=== PATIENT | male | born 1950 | race Caucasian/White ===

== ENCOUNTER 2017-06-05 13:37 | Emergency (ER) | payer OTHER ==
[~2017-06-05] VITALS: Ht 172.7 cm; Wt 96.6 kg
[~2017-06-05 13:37] MED LIST: ADVAIR 250-501 EACH IH; HYDROCHLOROTH12.5 MG PO; IBUPROFEN200 MG PO; LISINOPRIL2.5 MG PO; RESTASIS1 DROP OD; VIAGRA100 MG PO; XANAX1 MG PO
[2017-06-05] MEDS ORDERED: FLUOXETINE HCL20 MG PO (13:51)
[2017-06-05] MEDS ORDERED: ATORVASTATIN CA10 MG PO (13:51)
== END 2017-06-05 14:56 | disposition home or self-care (01) ==
LOC: ED 13:37
DX: S01.511A Laceration without foreign body of lip, initial encounter (principal); S05.10XA Contusion of eyeball and orbital tissues, unspecified eye, initial encounter; S00.33XA Contusion of nose, initial encounter; Z87.442 Personal history of urinary calculi; I10 Essential (primary) hypertension; Z88.5 Allergy status to narcotic agent; F17.200 Nicotine dependence, unspecified, uncomplicated; Z88.8 Allergy status to other drugs, medicaments and biological substances; Z79.899 Other long term (current) drug therapy; Y04.2XXA Assault by strike against or bumped into by another person, initial encounter
CPT/HCPCS: 71020; 99283

== ENCOUNTER 2017-08-29 14:57 | Emergency (ER) | payer OTHER ==
[~2017-08-29] VITALS: Ht 175.3 cm; Wt 97.1 kg
[~2017-08-29 14:57] MED LIST changes: +ATORVASTATIN CA10 MG PO; +FLUOXETINE HCL20 MG PO
[2017-08-29] MEDS ORDERED: LISINOPRIL-HCT1 EAC2 PO (15:12)
--- NOTE | 2017-08-29 17:48 | EKG ---
[facility] [address] [facility] [place], [place] [address] Signed Normal sinus rhythm Normal ECG No previous ECGs available Confirmed by PLACIDO MARIE MD ([id number]) on 08/29/2017 5:48:45 PM Electronically Signed By: PLACIDO MARIE MD 08/29/17 1748 PATIENT NAME: NINOSKA RECIO Electrocardiogram DATE OF : 54 PHYSICIAN: PLACIDO MARIE MD REPORT #: [id number] REPORT IS CONFIDENTIAL AND NOT TO BE RELEASED WITHOUT AUTHORIZATION
== END 2017-08-29 17:12 | disposition home or self-care (01) ==
LOC: ED 14:57
DX: R07.2 Precordial pain (principal); F41.9 Anxiety disorder, unspecified; I10 Essential (primary) hypertension; F17.200 Nicotine dependence, unspecified, uncomplicated; Z88.5 Allergy status to narcotic agent; Z88.8 Allergy status to other drugs, medicaments and biological substances; Z79.899 Other long term (current) drug therapy
CPT/HCPCS: 71046; 80053; 84484; 85025; 93005; 93010; 99283

== ENCOUNTER 2020-05-05 06:37 | Day surgery (SDC) | payer MEDICARE ==
[~2020-05-05] VITALS: Ht 175.3 cm; Wt 104.1 kg
[~2020-05-05 06:37] MED LIST changes: +HYDROXYZINE HCL25 MG PO; +LISINOPRIL-HCT1 EAC2 PO; +LISINOPRIL10 MG PO
--- NOTE | 2020-05-05 08:57 | NUR ---
05/05/20 0857 Vanessa Torres 0851- PT TO PACU IN LL POSITION. EYES CLOSED. RESPONDS TO VERBAL AND TACTILE STIMULI. DENIES PAIN OR NAUSEA. BREATHING EASY AND UNLABORED. SPO2 >95% ON 3 L O2 VIA NC. PT ENCOURAGED TO PASS GAS.
--- NOTE | 2020-05-05 12:14 | OR ---
[facility] [address] [place], [place] [address] Signed DATE OF OPERATION: SURGEON: Derek Roth MD PREOPERATIVE DIAGNOSES: 1. Personal history of colonic polyps. 2. Diverticulosis. POSTOPERATIVE DIAGNOSES: 1. Minimal sigmoid diverticulosis. 2. 7 mm polyps x2 at hepatic flexure (snare, tattoo). 3. 5 mm polyps x2 at 65 cm. 4. 4 mm polyp at 50 cm. 5. 4 mm polyps x2 at 25 cm. PROCEDURE: Colonoscopy, snare polypectomy, hot biopsy and injection of tattoo. ESTIMATED BLOOD LOSS: None. INDICATIONS: Ninoska is a 69-year-old gentleman, asked to see me for a followup colonoscopy. He had a negative colonoscopy back in 2003. He came in 2013 and had just a small 3 mm serrated adenomatous polyp removed at distal right colon. He also was known to have some diverticulosis. He comes back for his 5-year followup. In the meantime, he has no lower GI complaints. There is no family history of colon cancer or polyps. I have met with Ninoska in the office. 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 He understands this quite well. He understands colonoscopy along with its risks including, but not limited to gas bloating, crampy abdominal pain, bleeding, perforation requiring surgery, and missed diagnosis. We also reviewed the need for IV conscious sedation. He had expressed understanding and wished to proceed. DESCRIPTION OF PROCEDURE: Ninoska was taken into our endoscopy suite and placed in the left lateral decubitus position. He was given IV sedation with 10 mg of Versed, 200 mcg of fentanyl to cover the case. A digital rectal exam was performed and this was unremarkable other than his indurated prostate. The adult colonoscope was introduced and advanced all around into the cecum under direct visualization of camera without difficulty. His prep was good. We could easily see the appendiceal orifice and ileocecal valve. Multiple pictures were taken throughout for photodocumentation. The above-mentioned polyps were easily removed Electronically Signed By: DEREK ROTH MD 05/05/20 1214 PATIENT NAME: NINOSKA RECIO OPERATIVE REPORT DATE OF : 54 REPORT #: [id number] PHYSICIAN: DEREK ROTH MD PCP: OLIMPIA ROTH REPORT IS CONFIDENTIAL AND NOT TO BE RELEASED WITHOUT AUTHORIZATION [facility] [address] [place] [id number] Signed with the help of hot biopsy forceps. We did use our snare at hepatic flexure for both of those polyps. The 1st polyp, we did place a small tattoo underneath that polyp. However, the two polyps were only 2 or 3 cm apart. He does have some diverticula in the left and sigmoid colon. They were small in size, few in number, and scattered about. The rectum itself was unremarkable. Upon retroflexion of scope, there was really no additional pathology noted above the anal canal. After this, the gas was suctioned out and the colonoscope removed. Ninoska tolerated the procedure quite well. RECOMMENDATIONS: Ninoska will follow up my office in 7 to 14 days to review his results. He will more than likely stay on the 5-year plan. Derek Roth MD ALB/MODL /[id number] cc: MD Angeli Ferrer MD Copies: DEREK ROTH MD ~ Electronically Signed By: DEREK ROTH MD 05/05/20 1214 PATIENT NAME: NINOSKA RECIO OPERATIVE REPORT DATE OF : 54 REPORT #: [id number] PHYSICIAN: DEREK ROTH MD PCP: OLIMPIA ROTH REPORT IS CONFIDENTIAL AND NOT TO BE RELEASED WITHOUT AUTHORIZATION
--- NOTE | 2020-05-06 13:46 | PATH ---
[facility] [address] [place], [place] [address] Signed SPECIMEN(S): A COLON POLYPS AT 65 CM SPECIMEN(S): B HEPATIC FLEXURE POLYP SPECIMEN(S): C HEPATIC FLEXURE POLYP SPECIMEN(S): D COLON POLYP AT 50 CM SPECIMEN(S): E COLON POLYP AT 25 CM SPECIMEN SOURCE: A. COLON POLYPS AT 65 CM B. HEPATIC FLEXURE POLYP C. HEPATIC FLEXURE POLYP D. COLON POLYP AT 50 CM E. COLON POLYP AT 25 CM CLINICAL HISTORY: Follow up colonoscopy for history of polyps, diverticulosis, multiple colon polyps. MICROSCOPIC DESCRIPTION: Histologic sections of all submitted blocks are examined by light microscopy. These findings, together with the gross examination, support the pathologic diagnosis. FINAL PATHOLOGIC DIAGNOSIS: A. Colon polyps at 65 cm: - Tubular adenoma (three fragments). B. Hepatic flexure polyp: - Tubular adenoma (one fragment). C. Hepatic flexure polyp #2: - Hyperplastic polyp (one fragment). D. Colon polyp at 50 cm: - Tubular adenoma (one fragment). E. Colon polyp at 25 cm: - Hyperplastic polyp (one fragment). JVR:[facility]:C2NR GROSS DESCRIPTION: Five specimens are received in five containers, labeled "RT." A. The specimen, labeled "RT, polyps 2 at 65 cm," and designated on the requisition "colon polyp at 65 cm," is received in formalin and consists of three little soft tissue fragments that measure 0.3 cm in greatest dimension. The specimen is entirely submitted in cassette (A1). B. The specimen, labeled "RT, 2," and designated on the requisition "hepatic PATIENT NAME: NINOSKA RECIO PATHOLOGY DATE OF : 54 REPORT #: [id number] PHYSICIAN: HARINDER MALDONADO PCP: OLIMPIA ROTH REPORT IS CONFIDENTIAL AND NOT TO BE RELEASED WITHOUT AUTHORIZATION [facility] [address] [place], [place] [address] Signed flexure polyp," is received in formalin and consists of two little, polypoid soft tissue fragments that measure 0.3-1.0 cm in greatest dimension. The larger polyp is inked black, trisected, and the specimen is entirely submitted in cassette (B1). C. The specimen, labeled "RT, polyp hepatic flexure #2," is received in formalin and consists of two little soft tissue fragments that measure 0.2-0.3 cm in greatest dimension. The specimen is entirely submitted in cassette (C1). D. The specimen, labeled "RT, 4," and designated on the requisition "colon polyp at 50 cm," is received in formalin and consists of two little soft tissue fragments that measure 0.3 cm each in greatest dimension. The specimen is entirely submitted in cassette (D1). E. The specimen, labeled "RT, #5 polyp at 25 cm 2," and designated on the requisition "colon polyp at 25 cm 2," is received in formalin and consists of two little soft tissue fragments that measure 0.3 cm each in greatest dimension. The specimen is entirely submitted in cassette (E1). AT (under the direct supervision of a pathologist) The Gross Description was prepared using a voice recognition system. The report was reviewed for accuracy; however, sound-alike word errors, addition and/or deletions may occur. If there is any question about this report, please contact Client Services. PERFORMING LABORATORY: The technical component was performed by [facility], [address] [place] [id number] (Comic Book Writer: Benita Aguilar MD; CLIA# [id number]). Professional interpretation was performed by [facility], [address] [address] (Comic Book Writer: Nithin Condon M.D.). Diagnostician: Nithin Condon MD Pathologist Electronically Signed 05/06/2020 Copies: ~ PATIENT NAME: NINOSKA RECIO PATHOLOGY DATE OF : 54 REPORT #: [id number] PHYSICIAN: [facility] PCP: OLIMPIA ROTH REPORT IS CONFIDENTIAL AND NOT TO BE RELEASED WITHOUT AUTHORIZATION
== END 2020-05-05 09:35 | disposition home or self-care (01) ==
LOC: OPS 06:37 → DS 06:37 → OPS 07:30 → DS 07:30 → OPS 09:35
PROVIDERS: ATTEND Colon & Rectal Surgery
PROC: 0DBF8ZX Excision of Right Large Intestine, Via Natural or Artificial Opening Endoscopic, Diagnostic (ICD-10-PCS; 2020-05-05)
PROC: 0DBE8ZX Excision of Large Intestine, Via Natural or Artificial Opening Endoscopic, Diagnostic (ICD-10-PCS; 2020-05-05)
PROC: 3E0H8KZ Introduction of Other Diagnostic Substance into Lower GI, Via Natural or Artificial Opening Endoscopic (ICD-10-PCS; principal; 2020-05-05 07:30)
DX: D12.3 Benign neoplasm of transverse colon (principal); D12.2 Benign neoplasm of ascending colon; K63.5 Polyp of colon; K57.30 Diverticulosis of large intestine without perforation or abscess without bleeding; I10 Essential (primary) hypertension; K21.9 Gastro-esophageal reflux disease without esophagitis; E78.5 Hyperlipidemia, unspecified; E66.9 Obesity, unspecified; Z79.899 Other long term (current) drug therapy; Z87.891 Personal history of nicotine dependence; Z88.5 Allergy status to narcotic agent; Z88.8 Allergy status to other drugs, medicaments and biological substances; Z68.33 Body mass index [BMI] 33.0-33.9, adult; Z86.010 Personal history of colon polyps
CPT/HCPCS: 99153; G0500; J2250; J3010; J7121

== ENCOUNTER 2024-05-23 08:25 | Day surgery (SDC) | payer MEDICARE ==
[2024-05-20 10:14] VITALS: BP 124/84
[~2024-05-23] VITALS: Ht 175.3 cm; Wt 113.6 kg
[~2024-05-23 08:25] MED LIST changes: +IBLOOD GLUCOSE TEST STRIP 1 EA TEST VI PRN; +LACTATED RINGER'S 1,000 ML IV SCH; +LIDOCAINE HCL 1% 5 ML SDV INJ ONE; +MIDAZOLAM HCL 5 MG/5 ML VIAL IV PRN; +fentaNYL citrate 100 MCG/2 ML VIAL IV PRN
[2024-05-23 08:35] VITALS: BP 152/66
[2024-05-23] MEDS ORDERED: propofoL 200 MG/20 ML VIAL ONE (10:02)
[2024-05-23] MEDS ORDERED: LIDOCAINE HCL 2% 5 ML SDV ONE (10:02)
--- NOTE | 2024-05-23 10:10 | NUR ---
05/23/24 1011 Dionna Edwards 0955- PT ARRIVES TO THE PACU WITH AN ORAL AIRWAY IN PLACE AND 6L OF O2 VIA MASK. BREATHING IS EVEN AND UNLABORED. PT IS NON REACTIVE TO VERBAL AND TACTILE STIMULI. PT IS ON HIS LEFT SIDE. ABDOMEN IS SOFT AND NONDISTENDED. ALL MONITORS PUT IN PLACE. 1003- PT OPENS HIS EYES TO VERBAL STIMULI AND ABLE TO FOLLOW COMMANDS TO OPEN HIS MOUTH. ORAL AIRWAY REMOVED AT THIS TIME. 1005- O2 TURNED OFF. PT ABLE TO MAINTAIN SATURATION IN THE MID TO HIGH 90S. PT DENIES PAIN AND NAUSEA. 1010- MD AT BEDSIDE TO DISCUSS PLAN OF CARE.
[2024-05-23 10:20] VITALS: BP 154/86
--- NOTE | 2024-05-23 16:37 | OR ---
[facility] [address] [place], [place] [address] Signed DATE OF OPERATION: 05/23/2024 SURGEON: Derek Roth MD PREOPERATIVE DIAGNOSES: 1. A personal history of colonic polyps in 2013 at age 63. 2. Diverticulosis. 3. A tattoo at hepatic flexure. POSTOPERATIVE DIAGNOSES: 1. 3 mm lobulated polyp opposite ileocecal valve (clip/snare). 2. 5 mm polyp at 90 cm in transverse colon. 3. Tattoo at distal hepatic flexure. 4. mm polyp at 50 cm left colon. 5. 4 mm polyp at 23 cm in sigmoid colon. 6. Moderate diverticulosis. 7. [id number] internal hemorrhoids. PROCEDURE: Colonoscopy with snare polypectomy. Application of clip and hot biopsies. ESTIMATED BLOOD LOSS: None. INDICATIONS: Ninoska is a 73-year-old gentleman, asked to see me for a followup colonoscopy. He has moderately extensive records. He had a negative colonoscopy in 2003 at the age of 53 in [place], [place]. I helped him in 2013 at age of 63 with a small 3 mm serrated adenomatous polyp and some diverticulosis. I helped him again in 2019 at age 69 with three tubular adenomatous polyps and two hyperplastic polyps. He also has a tattoo in the distal hepatic flexure. All polyps were under 7 mm. He said he has no lower GI complaints. There is no family history of colon cancer or polyps. He is now retired, enjoying his [employer]. He still is using alprazolam and marijuana on a regular basis. This helps him with his anxiety and his sleep. He also has truncal obesity and a very full round face, heavy neck, chest and abdomen. In that regard, he does need monitored anesthesia care propofol infusion. That was very helpful today. He did require preoperative blood work and an EKG. He understands an adult person has to take him home afterwards. In the office, I gave him our brochure on colonoscopy. We reviewed that together. He understands the nature of the test. There is risk including, but not limited to gas bloating, crampy abdominal pain, bleeding, perforation requiring surgery, Electronically Signed By: DEREK ROTH MD 05/23/24 1637 PATIENT NAME: NINOSKA RECIO OPERATIVE REPORT DATE OF : 54 REPORT #: [id number] PHYSICIAN: DEREK ROTH MD PCP: ESSIE HUDSON MD REPORT IS CONFIDENTIAL AND NOT TO BE RELEASED WITHOUT AUTHORIZATION [facility] [address] [place], [place] [address] Signed and missed diagnosis. We also reviewed the written instructions for the bowel prep line by line. He had expressed understanding and wished to proceed. PROCEDURE IN DETAIL: Ninoska was taken into our endoscopy suite and placed in the left lateral decubitus position. He was given monitored anesthesia care with propofol infusion per our nurse email marketing manager. A digital rectal exam was performed and this was unremarkable. The adult colonoscope was introduced and advanced under direct visualization of the camera. We found a multi lobulated 3 cm polyp behind the fold opposite the ileocecal valve. It took several bites of our snare to get it removed completely. We suctioned those pieces through the scope. One piece was large enough, I suctioned it onto the scope and brought it out on the tip of the scope. We went back and looked at that and placed a clip across that area. We then slowly withdrew the scope. We did see the tattoo in the distal hepatic flexure. He had several other small polyps as mentioned above, removed with hot biopsy forceps. We did see what looks like a diverticulum in his right colon then several in the sigmoid colon. They were moderate in size, few in number and scattered about. Once in the rectum, the scope was retroflexed and he does have minimal to moderate internal hemorrhoid columns. After this, the gas was suctioned out colonoscope removed. Ninoska tolerated the procedure quite well. RECOMMENDATIONS: I will see Ninoska back in my office in 7 to 14 days to review his results. He will always need monitored anesthesia care in the future. He probably is going to need to come back and repeat his colonoscopy in 1 to 3 years. Derek Roth MD ALB/MODL /[id number] cc: MD Derek Puga MD Electronically Signed By: DEREK ROTH MD 05/23/24 1637 PATIENT NAME: NINOSKA RECIO OPERATIVE REPORT DATE OF : 54 REPORT #: [id number] PHYSICIAN: DEREK ROTH MD PCP: ESSIE HUDSON MD REPORT IS CONFIDENTIAL AND NOT TO BE RELEASED WITHOUT AUTHORIZATION [address] [address] Signed Copies: DEREK ROTH MD ~ Electronically Signed By: DEREK ROTH MD 05/23/24 1637 PATIENT NAME: NINOSKA RECIO OPERATIVE REPORT DATE OF : 54 REPORT #: [id number] PHYSICIAN: DEREK ROTH MD PCP: ESSIE HUDSON MD REPORT IS CONFIDENTIAL AND NOT TO BE RELEASED WITHOUT AUTHORIZATION
--- NOTE | 2024-05-27 12:42 | PATH ---
[facility] [address] [place], [place] [address] Signed SPECIMEN(S): A ILEOCECAL VALVE POLYP SPECIMEN(S): B TRANSVERSE POLYP, 90 CM SPECIMEN(S): C DESCENDING POLYP, 50 CM SPECIMEN(S): D SIGMOID POLYP, 23 CM SPECIMEN SOURCE: A. ILEOCECAL VALVE POLYP B. TRANSVERSE POLYP, 90 CM C. DESCENDING POLYP, 50 CM D. SIGMOID POLYP, 23 CM CLINICAL HISTORY: History of polyps, diverticulosis, internal hemorrhoids FINAL PATHOLOGIC DIAGNOSIS: A. Ileocecal valve, polypectomy: - Tubular adenoma B. Colon, transverse at 90 cm, polypectomy: - Tubular adenoma C. Colon, descending at 50 cm, polypectomy: - Tubular adenoma D. Colon, sigmoid at 23 cm, polypectomy: - Tubular adenoma BRP MICROSCOPIC EXAMINATION: Histologic sections of all submitted blocks are examined by light microscopy. These findings, together with the gross examination, support the pathologic diagnosis. GROSS DESCRIPTION: A. The specimen, labeled and designated "Teal, ileocecal valve polyp," is received in formalin and consists of little fragments of little to red-brown soft tissue (0.2-0.6 cm in greatest dimension), and two red-brown to little fragmented polypoid pieces of tissue (1.0 x 0.9 x 0.7 cm, and 1.5 x 1.1 x 1.0 cm). The possible resection margins of the polypoid pieces of tissue are differentially inked blue and black respectively, and serially sectioned to reveal red-brown soft cut surfaces. The specimen is submitted entirely in cassette (A1). B. The specimen, labeled and designated "Teal, transverse polyp, 90 cm," is received in formalin and consists of two little soft tissue fragments, ranging PATIENT NAME: NINOSKA RECIO PATHOLOGY DATE OF : 54 REPORT #: [id number] PHYSICIAN: HARINDER PATHOLOGY PCP: ESSIE HUDSON MD REPORT IS CONFIDENTIAL AND NOT TO BE RELEASED WITHOUT AUTHORIZATION [facility] [address] [place], [place] [address] Signed from 0.3-0.4 cm. Entirely submitted in (B1). C. The specimen, labeled and designated "Teal, descending polyp, 50 cm," is received in formalin and consists of one little soft tissue fragment, 0.3 cm. Entirely submitted in (C1). D. The specimen, labeled and designated "Teal, sigmoid polyp, 23 cm," is received in formalin and consists of one little soft tissue fragment, 0.3 cm. Entirely submitted in (D1). VB (under the direct supervision of a pathologist) The Gross Description was prepared using a voice recognition system. The report was reviewed for accuracy; however, sound-alike word errors, addition and/or deletions may occur. If there is any question about this report, please contact Client Services. ADDITIONAL NOTES: Immunohistochemical and/or in situ hybridization studies if performed in this case included appropriate positive controls that reacted as expected. This test was developed and its performance characteristics determined by [facility]. It has not been cleared or approved by the U.S. Food and Drug Administration. The FDA has determined that such clearance or approval is not necessary. This test is used for clinical purposes. It should not be regarded as investigational or for research. [facility] is certified under the Clinical Laboratory Improvement Amendments of 1988 (CLIA) as qualified to perform high complexity clinical laboratory testing. PERFORMING LABORATORY: Technical component was performed by [facility], [address] [place] [id number] (CLIA# [id number]). Professional interpretation was performed by [facility], [address] [address] (CLIA# [id number]). Diagnostician: Clifford Porter MD Pathologist Electronically Signed 05/27/2024 Copies: ~ PATIENT NAME: NINOSKA RECIO PATHOLOGY DATE OF : 54 REPORT #: [id number] PHYSICIAN: HARINDER MALDONADO PCP: SESIE HUDSON MD REPORT IS CONFIDENTIAL AND NOT TO BE RELEASED WITHOUT AUTHORIZATION
== END 2024-05-23 10:40 | disposition home or self-care (01) ==
LOC: DS 08:25
PROVIDERS: ATTEND Colon & Rectal Surgery
PROC: 0DBL8ZZ Excision of Transverse Colon, Via Natural or Artificial Opening Endoscopic (ICD-10-PCS; 2024-05-23)
PROC: 0DBN8ZZ Excision of Sigmoid Colon, Via Natural or Artificial Opening Endoscopic (ICD-10-PCS; 2024-05-23)
PROC: 0DBG8ZZ Excision of Left Large Intestine, Via Natural or Artificial Opening Endoscopic (ICD-10-PCS; principal; 2024-05-23 09:45)
DX: Z12.11 Encounter for screening for malignant neoplasm of colon (principal); D12.5 Benign neoplasm of sigmoid colon; D12.4 Benign neoplasm of descending colon; D12.3 Benign neoplasm of transverse colon; D12.0 Benign neoplasm of cecum; K64.8 Other hemorrhoids; K57.30 Diverticulosis of large intestine without perforation or abscess without bleeding; I10 Essential (primary) hypertension; E78.1 Pure hyperglyceridemia; R91.1 Solitary pulmonary nodule; Z87.891 Personal history of nicotine dependence; Z86.0101 Personal history of adenomatous and serrated colon polyps; Z79.899 Other long term (current) drug therapy; Z88.5 Allergy status to narcotic agent
CPT/HCPCS: 00811; 88305; J2003; J2704; J7121